=== PATIENT | female | born 1980 ===

== ENCOUNTER 2022-02-23 18:45 | Emergency (ER) | payer OTHER ==
[~2022-02-23] VITALS: Ht 170.2 cm; Wt 88.6 kg
[2022-02-23] MEDS ORDERED: DICL100G51 TP (20:23)
[2022-02-23] MEDS ORDERED: PANT-31 PO (20:23)
[2022-02-23] MEDS ORDERED: METH2.5 PO (20:23)
[2022-02-23] MEDS ORDERED: AMLO-258 PO (20:23)
[2022-02-23] MEDS ORDERED: DOCU-350 PO (20:23)
[2022-02-23] MEDS ORDERED: PREN-18 PO (20:23)
[2022-02-23] MEDS ORDERED: GABA-1181 PO (20:23)
[2022-02-23] MEDS ORDERED: HYDR50CA7 PO (20:23)
[2022-02-23] MEDS ORDERED: FERR325T27 PO (20:23)
[2022-02-23] MEDS ORDERED: TRAZ-257 PO (20:23)
[2022-02-23] MEDS ORDERED: FOLI0.4T6 PO (20:23)
[2022-02-23] MEDS ORDERED: CYCL-448 PO (20:23)
[2022-02-23] MEDS ORDERED: LISI-894 PO (20:23)
[2022-02-23 21:32] LABS: LYMPHOCYTES # (AUTO) 2.7 K/uL (1.0-4.8); MONOCYTES # (AUTO) 0.6 K/uL (0.1-1.0)
[2022-02-23 21:35] LABS: EOSINOPHILS % (AUTO) 1.6 % (1.0-6.0); HEMATOCRIT 36.8 % (36-46); HEMOGLOBIN 12.6 g/dL (12.0-16.0); LYMPHOCYTES % (AUTO) 30.2 % (22.0-44.0); MEAN CORPUSCULAR HEMOGLOBIN 30.2 pg (26.0-34.0); MEAN CORPUSCULAR HGB CONC 34.2 G/dL (31.0-37.0); MEAN CORPUSCULAR VOLUME 88 fL (80-100); MONOCYTES % (AUTO) 6.3 % (2.0-9.0); NEUTROPHILS # (AUTO) 5.5 K/uL (1.8-7.7); NEUTROPHILS % (AUTO) 60.9 % (40.0-70.0); RED BLOOD CELL COUNT(AUTO) 4.16 MIL/uL (4.00-5.20); RED CELL DISTRIBUTION WIDTH 13.9 % (11.5-14.5)
[2022-02-23 21:47] LABS: ANION GAP 9 mmol/L (8-16); CALCIUM, TOTAL 9.2 mg/dL (8.8-10.5); CARBON DIOXIDE 25 mmol/L (22-29); CHLORIDE 101 mmol/L (98-107); CREATININE 0.83 mg/dL (0.60-1.30); GLOMERULAR FILTR. RATE CALC > 60 mL/min (>60); GLUCOSE,RANDOM 104 mg/dL (70-110); POTASSIUM 4.1 mmol/L (3.5-5.1); SODIUM SERUM 135 mmol/L (136-145); UREA NITROGEN, BLOOD 14 mg/dL (7-18)
[2022-02-23 21:48] LABS: PLATELET COUNT (AUTO) 300 K/uL (150-450)
[2022-02-23 21:52] LABS: ALANINE AMINOTRANSFERASE 28 U/L (12-78); ALBUMIN 3.8 g/dL (3.4-5.0); ALKALINE PHOSPHATASE 75 U/L (46-116); ASPARTATE AMINOTRANSFERASE 21 U/L (15-37); BILIRUBIN,TOTAL 0.2 mg/dL (0.1-1.0); HCG,QUANTITATIVE < 1 mIU/mL (0-6); TOTAL PROTEIN, SERUM 7.7 g/dL (6.4-8.2)
[2022-02-23 22:14] LABS: COVID AG,FIA SOURCE NASAL SWAB
[2022-02-23 23:43] LABS: AMPHET/METH SCREEN,URINE NEGATIVE (NEGATIVE); BARBITURATE SCREEN, URINE NEGATIVE (NEGATIVE); BENZODIAZEPINES SCREEN,URINE NEGATIVE (NEGATIVE); CANNABINOID SCREEN,URINE NEGATIVE (NEGATIVE); COCAINE SCREEN,URINE NEGATIVE (NEGATIVE); METHADONE SCREEN, URINE NEGATIVE (NEGATIVE); OPIATE SCREEN,URINE NEGATIVE (NEGATIVE)
[2022-02-23 23:44] LABS: PHENCYCLIDINE SCREEN,URINE NEGATIVE (NEGATIVE)
[2022-02-24 01:00] VITALS: BP 135/88
[2022-02-24] MEDS ORDERED: OxyCODONE HCL/ACETAMINOPHEN 10-325 MG TABLET PO ONE (01:15)
== END 2022-02-24 01:30 | disposition home or self-care (01) ==
LOC: EDSEX 19:00 → EMS 19:00
DX: F32.9 Major depressive disorder, single episode, unspecified (principal); I10 Essential (primary) hypertension; F17.210 Nicotine dependence, cigarettes, uncomplicated; Z79.899 Other long term (current) drug therapy; Z20.822 Contact with and (suspected) exposure to COVID-19
CPT/HCPCS: 99283; 87426; 80053; 84702; 85025; 36415; 80307; G0480